=== PATIENT | female | born 1955 | race African-American/Black ===

== ENCOUNTER → 2020-05-20 | Outpatient (CLI) | payer MEDICARE, OTHER ==
[~2020-05-20] MED LIST: IOHEXOL 300 MG/ML 75 ML VIAL. IV ONE; OXYC1TAB15 PO
--- NOTE | 2020-05-20 10:49 | RAD ---
Examination: CT SOFT TISSUE NECK W/CONTRAST History: Reason: MASS ON RIGHT SIDE UNDER NECK, MARKED WITH BB / Spl. Instructions: / History: Comparison/Correlation: None Findings: Axial images of the neck were obtained following IV contrast. Sagittal and coronal reformatted images were provided. A BB marker was placed at the right upper neck region anteriorly. Incidental note is made of left anterior temporal fossa arachnoid cyst measuring 4.4 cm x 2.5 cm. Posterior fossa is unremarkable. The globes and optic nerves are normal. Orbits are unremarkable. Mild patchy opacification of the left ethmoid air cells intracranially. Mucosal thickening of the left ethmoid sinus is noted. Bilateral temporomandibular joint remodeling is present. The parotid glands are unremarkable. The patient is partially edentulous. Soft tissues of the pharynx are symmetric and unremarkable. True and false cords are symmetric and normal. The right submandibular gland is mildly larger in size as compared to the left submandibular gland with an edematous appearance. Subtle stranding about the right platysma at this level is noted. The BB marker corresponds to the inferior margin of the right submandibular gland. Anterior to the right submandibular gland, there is a 3.7 cm x 1.5 cm lymph node. Few submental lymph nodes are present. Right anteriorly. Right thyroid lobe is normal. Left thyroid lobe is diffusely enlarged with the hypoenhancing nodule measuring 2.6 cm x 1.1 cm x 3.9 cm longitudinal. Partially visualized lung apices are unremarkable. Atlantoaxial degenerative remodeling is present. Moderate C4-5 disc space narrowing is present with spurring. Moderate C6-T1 disc space narrowing also seen. Neural foraminal bony encroachment at these levels noted. Impression: Enlarged right submandibular gland with slightly edematous appearance. Edema or stranding about the platysma in this region noted along with nonenlarged lymph nodes. A BB marker corresponds to the inferior margin of the right submandibular gland. Findings may represent underlying inflammatory or infectious process. There is no definite finding to suggest a solid mass involving the right submandibular gland although underlying neoplastic process is not necessarily entirely excluded. No parotid or submandibular ductal calculus is evident although evaluation may be slightly limited due to IV contrast administration. Left thyroid lobe dominant nodule. Correlate with previous exams available to assess stability. If there are no previous exams, thyroid ultrasound is recommended for more complete assessment. PQRS Compliance Statement: One or more of the following individualized dose reduction techniques were utilized for this examination: 1. Automated exposure control 2. Adjustment of the mA and/or kV according to patient size 3. Use of iterative reconstruction technique Electronically signed by: Kris Kang MD (05/20/2020 10:46 AM) [id number]
== END | disposition home or self-care (01) ==
LOC: CT 08:04
PROVIDERS: ATTEND Otolaryngology
DX: E04.1 Nontoxic single thyroid nodule (principal); J34.89 Other specified disorders of nose and nasal sinuses; M48.03 Spinal stenosis, cervicothoracic region
CPT/HCPCS: 70491; Q9967

== ENCOUNTER → 2020-06-18 | Outpatient (CLI) | payer MEDICARE, OTHER ==
[~2020-06-18] MED LIST changes: -IOHEXOL 300 MG/ML 75 ML VIAL. IV ONE
--- NOTE | 2020-06-19 17:29 | RAD ---
Thyroid ultrasound. INDICATION: Nodule TECHNIQUE: Grayscale and color Doppler imaging of the thyroid gland was performed. FINDINGS: Right thyroid lobe measures 4.9 x 1.7 x 1.8 cm. It contains a 2.0 x 1.5 x 1.2 cm lobulated solid (2) mass with internal blood flow in the mid body. The mass is wider than tall (0) , smooth margined (0) , predominantly isoechoic (1) , and contains no internal calcification (0) . Total points is 3, TI-RADS 3. Left thyroid lobe measures 5.0 x 3.3 x 2.9 cm. It contains a 3.7 x 3.2 x 2.5 cm solid (2) mass with internal blood flow occupying the majority of the mid to lower lobe.The mass is wider than tall (0) , smooth margined (0) , predominantly isoechoic (1) and contains a few coarse internal echogenic foci compatible with macrocalcifications (1) . Total points is 4, TI-RADS 4. The isthmus measures 0.5 cm. No extrathyroid abnormal findings. Impression: 1. Left thyroid lobe contains a 3.7 cm dominant solid mass that is moderately suspicious for malignancy and meets criteria for FNA biopsy. FNA biopsy recommended. 2. Right thyroid lobe contains a 2.0 cm mildly suspicious nodule. Recommend follow-up at 1 3 and 5 years while it is still less than 2.5 cm (but at 2.5 cm size, FNA is recommended). Electronically signed by: Adama Causey MD (06/19/2020 5:26 PM) [id number]
== END | disposition home or self-care (01) ==
LOC: US 13:59
PROVIDERS: ATTEND Otolaryngology
DX: E04.1 Nontoxic single thyroid nodule (principal)
CPT/HCPCS: 76536

== ENCOUNTER → 2021-02-01 | Outpatient (CLI) | payer MEDICARE, OTHER ==
--- NOTE | 2021-02-01 09:56 | RAD ---
EXAM: Thyroid Ultrasound INDICATION: Reason: GOITER, F/U S/P BX / Spl. Instructions: NEG BX / History: ? TECHNIQUE: Real-time ultrasound of the thyroid was performed with permanent freeze-frame documentatio n. COMPARISON: 06/18/2020 Thyroid Ultrasound ? FINDINGS: THYROID: Thyroid gland is heterogeneous in echogenicity. ? Right Lobe: 4.9 x 1.8 x 1.9 cm. Nodule #1. Maximum size: 1.9 cm; Other 2 dimensions 1.4 x 1.4 cm. Location: Mid body right thyroid lobe. ACR TI-RADS risk category: TR3 (3 points): FNA if 2.5 cm, follow-up if 1.5-2.4 cm in 1, 3, and 5 year s. Significant change in size (>= 20% in two dimensions and minimal increase of 2 mm): No. Change in features: No. Change in ACR TI-RADS risk category: No. ? Left Lobe: 5.3 x 3.3 x 2.8 cm. Nodule #2. Maximum size: 3.8 cm; Other 2 dimensions 3.2 x 2.0 cm. Location: Mid to lower left lower thyroid lobe . ACR TI-RADS risk category: TR4 (4-6 points): FNA if 1.5 cm, follow-up if 1-1.4 cm in 1, 2, 3, and 5 y ears. Significant change in size (>= 20% in two dimensions and minimal increase of 2 mm): No. Change in features: No. Change in ACR TI-RADS risk category: No. ? Isthmus: 0.4 cm. ?? ? OTHER: No evidence of adjacent cervical adenopathy. ? IMPRESSION: ? Bilateral dominant thyroid nodules as described, status post previous fine-needle aspiration biopsy b y report. Recommend continued imaging surveillance to document stability over 5 years. . Electronically signed by: Adama Causey MD (02/01/2021 9:53 AM) [id number]
== END ==
LOC: US 07:52
PROVIDERS: ATTEND Otolaryngology
DX: E04.2 Nontoxic multinodular goiter (principal)
CPT/HCPCS: 76536

== ENCOUNTER → 2021-06-14 | Outpatient (CLI) | payer MEDICARE, OTHER ==
--- NOTE | 2021-06-14 17:03 | RAD ---
EXAM: THYROID ULTRASOUND. HISTORY: Thyroid nodules. Prior benign biopsy by report. COMPARISON: 02/01/2021, 06/18/2020. FINDINGS: Sonographic evaluation of the thyroid gland was performed and evaluated using ACR TI-RADS c riteria. Right lobe: The right lobe measures 4.7 x 1.7 x 1.7 cm. The parenchyma is homogeneous. Nodule #1. Maximum size: 1.9 cm; Other 2 dimensions 1.2 x 1.0 cm. Location: mid pole. Solid, heterogeneous, hypo echoic. ACR TI-RADS risk category: TR4 (4-6 points): FNA if 1.5 cm, follow-up if 1-1.4 cm in 1, 2, 3, and 5 y ears. Significant change in size (>= 20% in two dimensions and minimal increase of 2 mm): No. Change in features: No. Change in ACR TI-RADS risk category: No. Multiple smaller adjacent nodules are similar. Left lobe: The left lobe measures 5.0 x 3.1 x 2.8 cm. The parenchyma is homogeneous. Nodule #2. Maximum size: 3.6 cm; Other 2 dimensions 3.4 x 1.9 cm. Location: mid pole. ACR TI-RADS risk category: TR4 (4-6 points): FNA if 1.5 cm, follow-up if 1-1.4 cm in 1, 2, 3, and 5 y ears. Significant change in size (>= 20% in two dimensions and minimal increase of 2 mm): No. Change in features: No. Change in ACR TI-RADS risk category: No. Nodule #3. Maximum size: 3.0 cm; Other 2 dimensions 2.2 x 1.9 cm. Location: lower pole. ACR TI-RADS risk category: TR4 (4-6 points): FNA if 1.5 cm, follow-up if 1-1.4 cm in 1, 2, 3, and 5 y ears. Significant change in size (>= 20% in two dimensions and minimal increase of 2 mm): No. Change in features: No. Change in ACR TI-RADS risk category: No. Isthmus: The isthmus measures 4 mm. IMPRESSION/RECOMMENDATION: 1. Bilateral solid nodules measure up to 3.6 cm on the left and are stable. Correlate with prior fine -needle aspiration results. Ongoing follow-up is recommended. Electronically signed by: Roderick Phillips MD (06/14/2021 5:00 PM) [facility]
== END ==
LOC: US 10:31
PROVIDERS: ATTEND Otolaryngology
DX: E04.2 Nontoxic multinodular goiter (principal)
CPT/HCPCS: 76536

== ENCOUNTER → 2021-07-12 | Outpatient (CLI) | payer MEDICARE, OTHER ==
[~2021-07-12] MED LIST changes: +MULT-245 PO; +black seed oil PO
[2021-07-15 09:18] VITALS: BP 139/81
== END ==
LOC: LAB 13:39
PROVIDERS: ATTEND Ophthalmology
DX: Z01.812 Encounter for preprocedural laboratory examination (principal); Z20.822 Contact with and (suspected) exposure to COVID-19; H26.9 Unspecified cataract
CPT/HCPCS: C9803; U0003

== ENCOUNTER → 2021-07-15 | Day surgery (SDC) | payer MEDICARE, OTHER ==
[~2021-07-15] MED LIST changes: +ACETAMINOPHEN 500 MG TABLET PO PRN; +BALANCED SALT IRRIG SOLN NO.2 500 ML IO ONE; +BENZONATATE 100 MG CAPSULE. PO PRN; +BRIMONIDINE 0.2% OPHTH SOLUTION 5ML BOTTLE. OD ONE; +CEFUROXIME OPHTH 4 MG/0.4 ML SYRINGE. OD ONE; +CHONDROIT-SOD-HYALURONATE KIT. OD ONE; +IBUPROFEN 200 MG TABLET PO PRN; +IPRATRPIUM/ALBUTEROL 0.5/2.5MG 3 ML NEBU. NEB PRN; +IV RINGERS SOLUTION,LACTATED 1,000 ML IV SCH; +LIDO/EPI IN BSS OPHTH 2.7 ML SYRINGE. OD ONE; +LIDOCAINE 2% JELLY 6ML IN APPLICATOR. ONE; +MIDAZOLAM HCL PF 2 MG/2 ML VIAL. IV ONE; +ONDANSETRON PF 4 MG/2 ML VIAL. IV PRN; +PHENYLEPHRINE 10% OPHTH SOLUTION 5ML BOTTLE. OD PRN; +POVIDONE-IODINE 5% OPHTH SOLUTION 30ML BOTTLE. OD ONE; +POVIDONE-IODINE 5% OPHTH SOLUTION 30ML BOTTLE. OD PRN; +POVIDONE-IODINE 5% OPHTH SOLUTION 30ML BOTTLE. ONE; +PROPARACAINE 0.5% OPHTH SOLUTION 15ML BOTTLE. OD ONE; +PROPARACAINE 0.5% OPHTH SOLUTION 15ML BOTTLE. OD PRN; +prednisoLONE ACETATE 1% OPHTH SUSPENSION 5ML BOTTLE. OD ONE
[2021-07-15] MEDS: KETOROLAC TROMETHAMINE 0.5% OPHTH SOLUTION BOTTLE. OD SCH ×2 (07:24→07:30)
[2021-07-15] MEDS: TROPICAMIDE 1% OPHTH SOLUTION 15ML BOTTLE. OD SCH ×3 (07:24→07:36)
[2021-07-15] MEDS: PHENYLEPHRINE 2.5% OPHTH SOLUTION 2ML BOTTLE. OD SCH ×3 (07:24→07:36)
[2021-07-15] MEDS: TOBRAMYCIN 0.3% OPHTH SOLUTION 5ML BOTTLE. OD SCH ×2 (07:25→07:30)
[2021-07-15] MEDS: POVIDONE-IODINE 5% OPHTH SOLUTION 30ML BOTTLE. OD ONE ×2 (08:52→09:00)
--- NOTE | 2021-07-15 09:13 | PDOC4 ---
SURGEON: Julius Bonds MD Date of Procedure: 07/15/21 PREOP Diagnosis Visually significant cataract: Right Eye OD POSTOP Diagnosis Same PROCEDURE: Phaco w/ posterior chamber IOL: Right Eye OD ANESTHESIA Deep forniceal periocular 2% Lidocaine jelly Roxi/retro bulbar block with 2% Lidocaine with 0.5% Marcaine DESCRIPTION OF PROCEDURE The risks, benefits, and alternatives were discussed with the patient who elected to proceed. Informed consent was obtained in writing and placed in the chart After anesthetizing the eye topically, the patient was taken to the operating room, and the operative eye was prepped and draped in the usual sterile fashion for ocular surgery. A wire lid speculum was placed. A 1-mm clear corneal paracentesis incision was created with the side-port blade at a position three o'clock hours clockwise from the temporal cornea. Then, 1% non-preserved Lidocaine with epinephrine was injected into the anterior chamber followed by viscoelastic. Cotton-tipped applicators were used to stabilize the globe, and a 2.4 mm keratome was used to create a self-sealing incision in clear cornea at the temporal limbus. The Utrata forceps were used to create a continuous curvilinear capsulorrhexis. Balanced saline solution was injected via cannula beneath the capsulorrhexis edge to hydrodissect the lens nucleus and cortex from the lens capsule. The phacoemulsification handpiece and a chopping instrument were then used to remove the lens nucleus. The remaining epinuclear material and cortex were removed with the irrigation/aspiration handpiece. V iscoelastic was used to re-inflate the lens capsule, and the intraocular lens was injected directly into the capsular bag. The corneal wound edges were hydrated with balanced salt solution on a cannula and the irrigation/aspiration handpiece was used to extract the remaining viscoelastic. Cefuroxime 0.1mg/ml / Vigamox 0.5% was injected into the anterior chamber intracamerally. The wounds were inspected and found to be watertight at an appropriate intraocular pressure. Topical antibiotic drops were placed on the corneal surface. LRI: No If Yes, Number [] [place] [] Length [] degrees Depth [] microns Incision [place]: 180 Toric Lens [place] [] Patch/shield with Maxitrol/Tobradex/Erythromycin ointment: Yes No Co-managed patients/postop examination stable for co-management with referring doctor. EBL EBL: None SPECIMANS COLLECTED Specimens Collected: None JULIUS BONDS MD Jul 15, 2021 09:13
[2021-07-15 09:18] VITALS: BP 139/81
== END | disposition home or self-care (01) ==
LOC: SURG 06:57
PROVIDERS: ATTEND Ophthalmology
DX: H25.89 Other age-related cataract (principal); Z79.899 Other long term (current) drug therapy; Z98.890 Other specified postprocedural states; Z20.822 Contact with and (suspected) exposure to COVID-19
CPT/HCPCS: 66984; C9803; J2250; U0003; V2632

== ENCOUNTER → 2021-08-09 | Outpatient (CLI) | payer MEDICARE, OTHER ==
[2021-07-15 09:18] VITALS: BP 139/81
[~2021-08-09] MED LIST changes: -ACETAMINOPHEN 500 MG TABLET PO PRN; -BALANCED SALT IRRIG SOLN NO.2 500 ML IO ONE; -BENZONATATE 100 MG CAPSULE. PO PRN; -BRIMONIDINE 0.2% OPHTH SOLUTION 5ML BOTTLE. OD ONE; -CEFUROXIME OPHTH 4 MG/0.4 ML SYRINGE. OD ONE; -CHONDROIT-SOD-HYALURONATE KIT. OD ONE; -IBUPROFEN 200 MG TABLET PO PRN; -IPRATRPIUM/ALBUTEROL 0.5/2.5MG 3 ML NEBU. NEB PRN; -IV RINGERS SOLUTION,LACTATED 1,000 ML IV SCH; -LIDO/EPI IN BSS OPHTH 2.7 ML SYRINGE. OD ONE; -LIDOCAINE 2% JELLY 6ML IN APPLICATOR. ONE; -MIDAZOLAM HCL PF 2 MG/2 ML VIAL. IV ONE; -ONDANSETRON PF 4 MG/2 ML VIAL. IV PRN; -PHENYLEPHRINE 10% OPHTH SOLUTION 5ML BOTTLE. OD PRN; -POVIDONE-IODINE 5% OPHTH SOLUTION 30ML BOTTLE. OD ONE; -POVIDONE-IODINE 5% OPHTH SOLUTION 30ML BOTTLE. OD PRN; -POVIDONE-IODINE 5% OPHTH SOLUTION 30ML BOTTLE. ONE; -PROPARACAINE 0.5% OPHTH SOLUTION 15ML BOTTLE. OD ONE; -PROPARACAINE 0.5% OPHTH SOLUTION 15ML BOTTLE. OD PRN; -prednisoLONE ACETATE 1% OPHTH SUSPENSION 5ML BOTTLE. OD ONE
== END ==
LOC: LAB 14:39
PROVIDERS: ATTEND Ophthalmology
DX: Z01.812 Encounter for preprocedural laboratory examination (principal); Z20.822 Contact with and (suspected) exposure to COVID-19; H26.9 Unspecified cataract
CPT/HCPCS: U0003

== ENCOUNTER → 2021-08-12 | Day surgery (SDC) | payer MEDICARE, OTHER ==
[~2021-08-12] MED LIST changes: +ACETAMINOPHEN 500 MG TABLET PO PRN; +BALANCED SALT IRRIG SOLN NO.2 500 ML IO ONE; +BENZONATATE 100 MG CAPSULE. PO PRN; +BRIMONIDINE 0.2% OPHTH SOLUTION 5ML BOTTLE. OS ONE; +CEFUROXIME OPHTH 4 MG/0.4 ML SYRINGE. OS ONE; +CHONDROIT-SOD-HYALURONATE KIT. OS ONE; +IBUPROFEN 200 MG TABLET PO PRN; +IPRATRPIUM/ALBUTEROL 0.5/2.5MG 3 ML NEBU. NEB PRN; +IV RINGERS SOLUTION,LACTATED 1,000 ML IV SCH; +LIDO/EPI IN BSS OPHTH 2.7 ML SYRINGE. OS ONE; +LIDOCAINE 2% JELLY 6ML IN APPLICATOR. ONE; +MIDAZOLAM HCL PF 2 MG/2 ML VIAL. IV ONE; +MIDAZOLAM HCL PF 2 MG/2 ML VIAL. ONE; +ONDANSETRON PF 4 MG/2 ML VIAL. IV PRN; +PHENYLEPHRINE 10% OPHTH SOLUTION 5ML BOTTLE. OS PRN; +POVIDONE-IODINE 5% OPHTH SOLUTION 30ML BOTTLE. ONE; +POVIDONE-IODINE 5% OPHTH SOLUTION 30ML BOTTLE. OS ONE; +POVIDONE-IODINE 5% OPHTH SOLUTION 30ML BOTTLE. OS PRN; +PROPARACAINE 0.5% OPHTH SOLUTION 15ML BOTTLE. OS ONE; +PROPARACAINE 0.5% OPHTH SOLUTION 15ML BOTTLE. OS PRN; +prednisoLONE ACETATE 1% OPHTH SUSPENSION 5ML BOTTLE. OS ONE
[2021-08-12] MEDS: KETOROLAC TROMETHAMINE 0.5% OPHTH SOLUTION BOTTLE. OS SCH ×2 (07:05→07:10)
[2021-08-12] MEDS: TOBRAMYCIN 0.3% OPHTH SOLUTION 5ML BOTTLE. OS SCH ×2 (07:10→07:17)
[2021-08-12] MEDS: PHENYLEPHRINE 2.5% OPHTH SOLUTION 2ML BOTTLE. OS SCH ×3 (07:10→07:19)
[2021-08-12] MEDS: TROPICAMIDE 1% OPHTH SOLUTION 15ML BOTTLE. OS SCH ×3 (07:10→07:19)
--- NOTE | 2021-08-12 08:21 | PDOC4 ---
SURGEON: Julius Bonds MD Date of Procedure: 08/12/21 PREOP Diagnosis Visually significant cataract: Left Eye OS POSTOP Diagnosis Same PROCEDURE: Phaco w/ posterior chamber IOL: Left Eye OS ANESTHESIA Deep forniceal periocular 2% Lidocaine jelly Roxi/retro bulbar block with 2% Lidocaine with 0.5% Marcaine DESCRIPTION OF PROCEDURE The risks, benefits, and alternatives were discussed with the patient who elected to proceed. Informed consent was obtained in writing and placed in the chart After anesthetizing the eye topically, the patient was taken to the operating room, and the operative eye was prepped and draped in the usual sterile fashion for ocular surgery. A wire lid speculum was placed. A 1-mm clear corneal paracentesis incision was created with the side-port blade at a position three o'clock hours clockwise from the temporal cornea. Then, 1% non-preserved Lidocaine with epinephrine was injected into the anterior chamber followed by viscoelastic. Cotton-tipped applicators were used to stabilize the globe, and a 2.4 mm keratome was used to create a self-sealing incision in clear cornea at the temporal limbus. A Malyugin ring was affixed to the iris du eto inadequate pupillary dilation. The Utrata forceps were used to create a continuous curvilinear capsulorrhexis. Balanced saline solution was injected via cannula beneath the capsulorrhexis edge to hydrodissect the lens nucleus and cortex from the lens capsule. The phacoemulsification handpiece and a chopping instrument were then used to remove the lens nucleus. The remaining epinuclear material and cortex were removed with the irrigation/aspiration handpiece. Viscoelastic was used to re-inflate the lens capsule, and the intraocular lens was injected directly into the capsular bag. The Malyugin ring was removed. The corneal wound edges were hydrated with balanced salt solution on a cannula and the irrigation/aspiration handpiece was used to extract the remaining viscoelastic. Cefuroxime 0.1mg/ml / Vigamox 0.5% was injected into the anterior chamber intracamerally. The wounds were inspected and found to be watertight at an appropriate intraocular pressure. Topical antibiotic drops were placed on the corneal surface. LRI: No If Yes, Number [] [place] [] Length [] degrees Depth [] microns Incision [place]: 180 Toric Lens [place] [] Patch/shield with Maxitrol/Tobradex/Erythromycin ointment: Yes No Co-managed patients/postop examination stable for co-management with referring doctor. EBL EBL: None SPECIMANS COLLECTED Specimens Collected: None JULIUS BONDS MD Aug 12, 2021 08:21
[2021-08-12 08:30] VITALS: BP 129/93
== END | disposition home or self-care (01) ==
LOC: SURG 06:48
PROVIDERS: ATTEND Ophthalmology
DX: H25.89 Other age-related cataract (principal); Z86.73 Personal history of transient ischemic attack (TIA), and cerebral infarction without residual deficits; Z79.899 Other long term (current) drug therapy; Z98.890 Other specified postprocedural states
CPT/HCPCS: 66982; J2250; V2632